=== PATIENT | female | born 1945 | race African-American/Black ===

== ENCOUNTER → 2016-03-02 | Outpatient (CLI) | payer OTHER ==
--- NOTE | 2016-03-02 16:52 | MA ---
Screening Digital Mammogram Clinical Indications: Routine screening. Sister with breast cancer at age 62. Technique: Standard cephalocaudal and mediolateral oblique projections are obtained. An additional M LO view is performed of the right breast. This examination was processed by the [employer] computer aided d etection system. Comparison: February 2015, 2014, 2013 and 2012 Breast density: C; The breast tissue is heterogeneously dense, which could obscure detection of small masses. Findings: CAD was reviewed. No suspicious findings are identified. Impression: Negative mammogram. BI-RADS 1. Recommendation: Routine screening is recommended in one year, as long as physical examination is rupali ign in this patient with moderately dense breast parenchyma. [facility] will send a result letter to the patient. Negative mammography should not preclude additional workup of a clinically suspicious finding. The patient's information is entered into a reminder system with a target due date for her next mammo gram.
== END ==
LOC: CIMAGING 14:32
DX: Z12.31 Encounter for screening mammogram for malignant neoplasm of breast (principal); Z80.3 Family history of malignant neoplasm of breast
CPT/HCPCS: G0202

== ENCOUNTER 2017-01-21 20:45 | Emergency (ER) | payer OTHER ==
[2017-01-21] MEDS ORDERED: ONDANSETRON 4 MG/2 ML VIAL IVP ONE (20:55)
[2017-01-21] MEDS ORDERED: NS 1,000 ML IV ONE (20:55)
[2017-01-21 20:59] VITALS: O2SAT 98
--- NOTE | 2017-01-21 21:02 | EDPHY ---
H & P Time Seen by Provider: 01/21/17 20:47 HPI/ROS: HPI Vomiting and diarrhea. 71-year-old female by private vehicle with her daughter and . This patient ate dinner at approximately 7:00 p.m.. Shortly after that she started feeling nausea followed by cramping in her abdomen followed by vomiting and watery diarrhea. She reports several episodes of nonbilious non bloody vomiting. She denies any bloody or melenic stool. She reports the cramping sensation comes on in waves. Her ate the same thing and is not ill. She denies any ill contacts. No change in her diet. No foreign travel. ROS: Constitutional: No fever, no chills. No weakness. Eyes: No discharge. No changes in vision. ENT: No sore throat. No nasal congestion or rhinorrhea. Respiratory: No cough. No shortness of breath. Cardiac: No chest pain, no palpitations. Gastrointestinal: As above. Genitourinary: No hematuria. No dysuria or increased frequency with urination. Musculoskeletal: No back pain. No neck pain. No myalgias or arthralgias. Skin: No rashes. Neurological: No headache. No focal weakness or altered sensation. Past medical history: Hypertension. Dr. Laura is her primary care physician. Social history: Former smoker. Quit 20 years ago. No alcohol. Here with family. Physical Exam: General Appearance: Alert, no distress. This patient is responding to questions appropriately and in full sentences. This patient appears well- hydrated and well-nourished. Eyes: Pupils equal and round no pallor or injection. No lid edema, erythema or injection. Respiratory: There are no retractions, lungs are clear to auscultation with good air movement bilaterally. Cardiovascular: Regular rate and rhythm. No murmur. Gastrointestinal: Abdomen is soft and nontender, no masses, bowel sounds normal. No focal tenderness at McBurney's point. No Gasca sign. Neurological: Motor sensory function is grossly intact. Cranial nerves are normal. Gait is normal. Skin: Warm and dry, no rashes. Musculoskeletal: Neck is supple and nontender. Extremities are symmetrical. All joints range without pain or impingement. Psychiatric: No agitation. No depression. Database: EKG: EKG time is 9:06 p.m.; EKG shows a narrow complex normal sinus rhythm with a ventricular rate of 69. The AR, QRS, QT intervals are within normal limits. There are no ST-T wave changes indicative of ischemic or injury pattern. No evidence of right heart strain. Interpreted by me. Imaging: Procedures: Emergency department course: IV was placed. Vital signs reviewed. She was started on IV normal saline with 500 cc to 1 L to be given over the next 1-2 hours. She was initially given 4 mg of IV Zofran and 20 mg of IV Pepcid for nausea. EKG obtained and reviewed by myself. 10:00 p.m., patient re-evaluated. Feeling much better at this time. Repeat abdominal exam she is soft, nontender nondistended. She feels comfortable going home. She is tolerating oral fluids. Results of her emergency department workup discussed with her. All of her questions were answered. Follow-up and return to emergency department precautions reviewed. She was discharged in good condition with her family. Differential Diagnosis: The differential diagnosis on this patient includes but is not limited to food borne illness, viral gastroenteritis. Pancreatitis, cholecystitis, appendicitis , bowel obstruction, acute coronary syndrome unlikely. This represents a partial list of diagnoses considered. These considerations are based on history , physical exam, past history, reassessment and diagnostic testing. Constitutional: Initial Vital Signs Temperature (C) 36.4 C 01/21/17 20:57 Heart Rate 74 01/21/17 20:57 Respiratory Rate 16 01/21/17 20:57 Blood Pressure 128/63 H 01/21/17 20:57 O2 Sat (%) 98 01/21/17 20:57 O2 Delivery Mode Room Air Allergies/Adverse Reactions: No Known Allergies Allergy (Unverified 01/21/17 20:57) Home Medications: Medication Instructions Recorded Bp Med 01/21/17 Ondansetron Odt [Zofran Odt 4 mg 4 mg PO Q4PRN PRN #10 tab 01/21/17 (*)] Medical Decision Making - Data Points Laboratory Results: Laboratory Results 01/21/17 21:05 01/21/17 21:05 01/21/17 01/21/17 21:05 21:05 WBC 10.28 10^3/uL H 10^3/uL (3.80-9.50) RBC 4.86 10^6/uL 10^6/uL (4.18-5.33) Hgb 15.4 g/dL g/dL (12.6-16.3) Hct 45.2 % % (38.0-47.0) MCV 93.0 fL fL (81.5-99.8) MCH 31.7 pg pg (27.9-34.1) MCHC 34.1 g/dL g/dL (32.4-36.7) RDW 14.4 % % (11.5-15.2) Plt Count 242 10^3/uL 10^3/uL (150-400) MPV 10.7 fL fL (8.7-11.7) Neut % (Auto) 81.2 % H % (39.3-74.2) Lymph % (Auto) 15.4 % % (15.0-45.0) [place] % (Auto) 2.7 % L % (4.5-13.0) Eos % (Auto) 0.4 % L % (0.6-7.6) Baso % (Auto) 0.1 % L % (0.3-1.7) Nucleat RBC Rel Count 0.0 % % (0.0-0.2) Absolute Neuts (auto) 8.35 10^3/uL H 10^3/uL (1.70-6.50) Absolute Lymphs (auto) 1.58 10^3/uL 10^3/uL (1.00-3.00) Absolute Monos (auto) 0.28 10^3/uL L 10^3/uL (0.30-0.80) Absolute Eos (auto) 0.04 10^3/uL 10^3/uL (0.03-0.40) Absolute Basos (auto) 0.01 10^3/uL L 10^3/uL (0.02-0.10) Absolute Nucleated RBC 0.00 10^3/uL 10^3/uL (0-0.01) Immature Gran % 0.2 % % (0.0-1.1) Immature Gran # 0.02 10^3/uL 10^3/uL (0.00-0.10) Sodium 143 mEq/L mEq/L (134-144) Potassium 3.4 mEq/L L mEq/L (3.5-5.2) Chloride 100 mEq/L mEq/L (97-110) Carbon Dioxide 26 mEq/l mEq/l (22-31) Anion Gap 17 mEq/L H mEq/L (8-16) BUN 15 mg/dL mg/dL (7-23) Creatinine 1.1 mg/dL H mg/dL (0.6-1.0) Estimated GFR 49 Glucose 112 mg/dL H mg/dL (70-100) Calcium 9.2 mg/dL mg/dL (8.5-10.4) Total Bilirubin 0.4 mg/dL mg/dL (0.1-1.4) Conjugated Bilirubin 0.1 mg/dL mg/dL (0.0-0.5) Unconjugated Bilirubin 0.3 mg/dL mg/dL (0.0-1.1) AST 44 IU/L IU/L (14-46) ALT 46 IU/L IU/L (9-52) Alkaline Phosphatase 84 IU/L IU/L (38-126) Total Protein 7.0 g/dL g/dL (6.3-8.2) Albumin 3.9 g/dL g/dL (3.5-5.0) Lipase 134 IU/L IU/L (23-300) Medications Given: Discontinued Medications Famotidine (Pepcid) 20 mg IVP EDNOW ONE Stop: 01/21/17 21:10 Last Admin: 01/21/17 21:16 Dose: 20 mg Sodium Chloride (Ns) 1,000 mls @ 0 mls/hr IV EDNOW ONE; Wide Open PRN Reason: Protocol Stop: 01/21/17 20:56 Last Admin: 01/21/17 21:07 Dose: 1,000 mls Famotidine 20 mg/ Sodium (Chloride) 102 mls @ 408 mls/hr IV EDNOW ONE Stop: 01/21/17 21:09 Last Admin: 01/21/17 21:16 Dose: Not Given Ondansetron HCl (Zofran) 4 mg IVP EDNOW ONE Stop: 01/21/17 20:56 Last Admin: 01/21/17 21:08 Dose: 4 mg Departure - Departure Disposition: Home, Routine, Self-Care Clinical Impression: Vomiting and diarrhea Condition: Good Instructions: Gastroenteritis (ED) Additional Instructions: Read and follow provided instructions. Follow-up with your primary care physician tomorrow for re-evaluation as needed. Your creatinine which is a measure of your kidney function was slightly elevated. You should have this rechecked by your primary care physician within the next couple of weeks. Take medication as prescribed for nausea. Keep yourself well hydrated. A good fluid to drink is Gatorade mixed with water in a 1-1 dilution over ice. Return to the emergency department for worsening abdominal pain, vomiting and inability to keep fluids down despite medication or other serious concerns. Referrals: Otto Laura MD [Primary Care Provider] - As per Instructions Prescriptions: Ondansetron Odt [Zofran Odt 4 mg (*)] 4 mg PO Q4PRN PRN #10 tab PRN Reason: For Nausea & Vomiting
[2017-01-21] MEDS: FAMOTIDINE 20 MG in NS 100 ML IV ONE ×2 (21:07→21:16)
--- NOTE | 2017-01-21 21:07 | CPEKG ---
Heart Rate: 69 RR Interval: 870 P-R Interval: 156 QRSD Interval: 100 QT Interval: 404 QTC Interval: 433 P Vaughn: 67 QRS Vaughn: 63 T Wave Vaughn: 44 EKG Severity - NORMAL ECG - EKG Impression: SINUS RHYTHM Electronically Signed By: Evelyn Crystal 21-Jan-2017 21:09:31
[2017-01-21] MEDS ORDERED: FAMOTIDINE 20 MG/2 ML SDV IVP ONE (21:09)
[2017-01-21 21:19] LABS: % IMMATURE GRANULYOCYTES 0.2 % (0.0-1.1); ABSOLUTE IMMATURE GRANULOCYTES 0.02 10^3/uL (0.00-0.10); ADD DIFF? NO; ADD MORPH? NO; ADD SCAN? NO; ATYPICAL LYMPHOCYTE FLAG 0 (0-99); FRAGMENT RBC FLAG 0 (0-99); HEMATOCRIT 45.2 % (38.0-47.0); HEMOGLOBIN 15.4 g/dL (12.6-16.3); LEFT SHIFT FLG 0 (0-99); LIPEMIA HEMOLYSIS FLAG 90 (0-99); MEAN CELL HEMOGLOBIN 31.7 pg (27.9-34.1); MEAN CELL HEMOGLOBIN CONCENTR. 34.1 g/dL (32.4-36.7); MEAN PLATELET VOLUME 10.7 fL (8.7-11.7); PLATELET CLUMPS FLAG 0 (0-99); PLATELET COUNT 242 10^3/uL (150-400); RED BLOOD CELL COUNT 4.86 10^6/uL (4.18-5.33); RED CELL DISTRIBUTION WIDTH 14.4 % (11.5-15.2)
[2017-01-21 21:33] LABS: ALBUMIN 3.9 g/dL (3.5-5.0); BILIRUBIN,TOTAL 0.4 mg/dL (0.1-1.4); BILIRUBIN-CONJUGATED 0.1 mg/dL (0.0-0.5); BILIRUBIN-UNCONJUGATED 0.3 mg/dL (0.0-1.1); CALCIUM 9.2 mg/dL (8.5-10.4); CREATININE 1.1 mg/dL (0.6-1.0); POTASSIUM 3.4 mEq/L (3.5-5.2)
[2017-01-21] MEDS ORDERED: ONDANSETRON 4MG PREPACK#2 BTL TAKEHOME ONE (21:46)
[2017-01-21 22:03] VITALS: BP 120/68; PULSE 72; RESP 14; TEMP 97.9
== END 2017-01-21 22:10 | disposition home or self-care (01) ==
LOC: CED 20:45
DX: R19.7 Diarrhea, unspecified (principal); R11.10 Vomiting, unspecified; I10 Essential (primary) hypertension; E86.9 Volume depletion, unspecified; Z87.891 Personal history of nicotine dependence
CPT/HCPCS: 93005; 96361; 96374; 96375; 99284; J2405; 80048-PO; 80076-PO; 83690-PO; 85025-PO

== ENCOUNTER → 2017-03-04 | Outpatient (CLI) | payer OTHER | LOC: CIMAGING 12:09 | PROVIDERS: ATTEND Obstetrics & Gynecology | DX: Z12.31 Encounter for screening mammogram for malignant neoplasm of breast (principal); Z80.3 Family history of malignant neoplasm of breast ==

== ENCOUNTER → 2018-03-05 | Outpatient (CLI) | payer OTHER | LOC: CIMAGING 12:08 | PROVIDERS: ATTEND Family Medicine | DX: Z12.31 Encounter for screening mammogram for malignant neoplasm of breast (principal) ==